=== PATIENT | male | born 1945 | race Caucasian/White ===

== ENCOUNTER 2018-01-17 08:39 | Outpatient (CLI) | payer MEDICARE ==
--- NOTE | 2018-01-17 12:04 | MRI ---
BRAIN MRI WITH AND WITHOUT CONTRAST: Date: 01-17-18 Comparison: None. History: Left sided hearing loss for 8 months, sensory neural hearing loss. Technique: Multiplanar, multisequence MR imaging of the brain is obtained with and without contrast u sing an internal auditory canal protocol. FINDINGS: The diffusion weighted imaging demonstrates no evidence for acute infarction. Imaged paranasal sinuses/mastoid air cells demonstrate normal signal intensity. Arterial flow voids a t axial level of the skull base appear grossly unremarkable on the T2 weighted imaging. There are few scattered subcentimeter foci of increased T2 and FLAIR signal within the subcortical an d deep white matter suggesting minimal small vessel disease. Thin section T2 weighted imaging through the skull base demonstrates normal signal intensity within t he internal auditory canal, cochlea, vestibule, and semicircular canals bilaterally. Regional bone marrow signal intensity appears grossly unremarkable. Thin section post contrast imaging demonstrates no evidence for abnormal enhancement/mass lesion in t he CP angle on either side. There is no abnormal enhancement involving the IAC, cochlea, vestibule, o r the semicircular canals on either side. Whole brain post contrast imaging demonstrates no abnormal enhancement within the brain parenchyma. IMPRESSION: 1. No focal area signal abnormality seen to explain left sided hearing loss. POS: [id number]
[2018-01-17] MEDS ORDERED: Gadobenate Dimeglumine 529 MG/1 ML (20ML VIAL) ONE (12:55)
== END 2018-01-17 08:40 | disposition home or self-care (01) ==
LOC: TBSIIMAG 08:39
PROVIDERS: ATTEND Otolaryngology Plastic Surgery within the Head & Neck
DX: H90.5 Unspecified sensorineural hearing loss (principal)
CPT/HCPCS: 70553; 82565; A9579